=== PATIENT | male | born 1945 | race Caucasian/White ===

== ENCOUNTER 2020-09-13 10:14 | Emergency (ER) | payer MEDICARE, SELFPAY ==
--- NOTE | 2020-09-13 10:24 | ED.GENADULT ---
HPI - General Adult General Chief complaint: Upper Respiratory Infection Stated complaint: head congestion/eyes red/watering/sore throat Time Seen by Provider: 09/13/20 10:24 Source: patient Mode of arrival: ambulatory Limitations: no limitations History of Present Illness HPI narrative: 75-year-old male patient presents to the [facility] with complaints of cold symptoms x5 days. Patient states he has had itchy eyes, watery eyes, congestion, runny nose, stuffy nose, slight cough. Patient states he has tried taking some [id number] severe cold and flu and some Mucinex. Denies any antihistamines. Patient states he has been fully vaccinated. Patient states that his had something similar a couple weeks ago. Denies any chest pain or shortness of breath at this time but states he is so congested he has to sleep in a recliner. Related Data Home Medications Medication Instructions Recorded Confirmed atorvastatin 09/13/20 atorvastatin 09/13/20 09/13/20 dapagliflozin [Farxiga] mg 09/13/20 lisinopril 09/13/20 metformin mg PO 09/13/20 testosterone cypionate mg 09/13/20 Allergies Allergy/AdvReac Type Severity Reaction Status Date / Time No Known Allergies Allergy Unverified 09/13/20 10:45 Review of Systems Review of Systems: Narrative: CONSTITUTIONAL: Denies fever, chills, or sweats. EYES: Denies visual changes, redness, or discharge. Positive watery and itchy eyes bilaterally ENT: Positive rhinorrhea, congestion, sore throat, denies otalgia. CARDIOVASCULAR: Denies chest pain, palpitations, or edema. RESPIRATORY: Denies cough or dyspnea. GASTROINTESTINAL: Denies abdominal pain, nausea, vomiting, or diarrhea. GENITOURINARY: Denies dysuria or hematuria. SKIN: Denies rash or itching. MUSCULOSKELETAL: Denies back pain, joint pain, or myalgia. NEUROLOGIC: Denies headache, numbness, or weakness. PSYCHIATRIC: Denies anxiety or depression. [facility] Past Medical History Medical History (Updated 09/13/20 @ 11:23 by ROSA M Cross) Non-insulin dependent diabetes mellitus Comments At the time of my signature I agree with nursing past medical history, surgical, social, and family history. There is no relevant family history pertinent to the presenting complaint. Exam Narrative: Exam Narrative: GENERAL: Well-appearing, well-nourished, and in no acute distress. HEAD: Normocephalic, atraumatic. EYES: PERRLA and EOM intact without limitation or complaint of pain, no periorbital soft tissue swelling ,no erythema, warmth or tenderness noted, no obvious deformity. No crusting or swelling.clear tearing or draining.No photophobia. No nystagmus No FB or lesion on lid eversion. Corneas grossly clear, no obvious FB or hyphens/hypopyon. Erythemic injection to sclera bilaterally. Lids and lashes clear. ENT: Nares with erythema and edema noted bilaterally, rhinorrhea present, no epistaxis. Mucous membranes moist. Posterior pharynx with slight erythema no tonsillar Scarlet, no exudates or lesions present. NECK: Supple. No lymphadenopathy CHEST: Clear to auscultation. No respiratory distress. Patient able talk in clear complete sentences. No tripoding noted. HEART: Regular rate and rhythm. No murmur heard. Normal peripheral pulses. ABDOMEN: Soft, nontender, nondistended, normal active bowel sounds. EXTREMITIES: Normal range of motion. No edema. SKIN: Warm, dry, no rash. NEURO: No focal deficits. Alert and oriented x3. Course Reevaluation(s) Reevaluation #1: Reevaluated patient after his Covid test had resulted and his rapid Covid did come back positive, strep test was negative. Notified patient of his positive Covid test discussed with them about quarantine and that he will need to quarantine for at least 10 days from onset of symptoms. Last day of quarantine should be this upcoming and which he can go out on this upcoming Tuesday. Discussed with him that he may still have some symptoms even after his quarantine period
[2020-09-13 10:39] VITALS: BP 153/74; PULSE 92; RESP 16; TEMP 37.3; O2SAT 95
== END 2020-09-13 11:45 | disposition home or self-care (01) ==
PROVIDERS: Emergency Provider Nurse Practitioner Family
DX: U07.1 COVID-19 (principal); E11.9 Type 2 diabetes mellitus without complications
CPT/HCPCS: 87081; 87426; 87880; 99213; C9803; G0463